=== PATIENT | female | born 1985 | race Caucasian/White ===

== ENCOUNTER 2017-04-20 11:12 | Observation (INO) | payer MEDICAID, OTHER ==
[2017-04-20] MEDS ORDERED: NS 0.9% 1000 ML* 1,000 ML IV ONE (11:40)
--- NOTE | 2017-04-20 11:44 | ED ---
Substance Abuse/Use - HPI Summary HPI Summary: Patient presents to the ED with suspected overdose. occupational therapist rehab manager states her friends had dropped her off at administration in the front lobby who brought her back to triage. She has been unable to keep her eyes open and is unable to respond appropriately. She is unable to tell me which medications/drugs she ingested this morning except for xanax. Triage states she had told her Fentanyl and crack. She denies this on questioning, but again she is unable to respond appropriately and communicate for more than 10 seconds at a time. Unknown medical history or contributing factors. Track gonzalez are noticed on bilateral arms. She is breathing OK and maintains 100% sat on RA. Pupils are dilated. - History Of Current Complaint Chief Complaint: EDOverdose Stated Complaint: AMS Time Seen by Provider: 04/20/17 11:21 Hx Obtained From: Patient, Family/Cad Application Support Specialist, Other: - occupational therapist rehab manager ?: No - unknown as patient is unresponsive Overdose Characteristics: Oral Timing Of Abuse: Daily Severity Initially: Severe Severity Currently: Severe Character: Stuporous Associated Signs And Symptoms: Intentional Ingestion Related Hx: Possible Multi Drug Ingestion - Risk Factor(s) Completed Suicide Risk Factors: White Malagasy - Allergies/Home Medications Allergies/Adverse Reactions: Allergies Allergy/AdvReac Type Severity Reaction Status Date / Time Lorazepam [From Ativan] Allergy Airway Verified 04/20/17 15:25 Obstruction Home Medications: Home Medications Gabapentin CAP(*) [Neurontin 300 CAP(*)] 300 mg PO TID 04/20/17 [History Confirmed 04/20/17] Sertraline* [Zoloft*] 100 mg PO DAILY 04/20/17 [History Confirmed 04/20/17] PMH/Surg Hx/FS Hx/Imm Hx Previously Healthy: Yes Psychiatric History: Reports: Hx Substance Abuse - Immunization History Hx Pertussis Vaccination: No Immunizations Up to Date: Unable to Obtain/Confirm Infectious Disease History: No - Social History Occupation: Unemployed Lives: Alone - unknown Hx Substance Use: Yes - unknown - multi drug ingestion possible Smoking Status (MU): Unknown if Ever Smoked Do You Chew or Dip Tobacco: No Have You Chewed or Dipped Tobacco in the LAST YEAR: No Review of Systems Constitutional: Negative Negative: Fever, Chills, Fatigue Cardiovascular: Negative Respiratory: Negative Positive: no symptoms reported, see HPI Musculoskeletal: Negative Positive: Other - unresponsive All Other Systems Reviewed And Are Negative: Yes Physical Exam Triage Information Reviewed: Yes Vital Signs Reviewed: Yes Appearance: Positive: Ill-Appearing, Thin, Cachectic Skin: Positive: Dry Head/Face: Positive: Normal Head/Face Inspection Diagnostics - Laboratory Result Diagrams: 04/21/17 04:45 04/21/17 04:45 Lab Statement: Any lab studies that have been ordered have been reviewed, and results considered in the medical decision making process. Re-Evaluation - Re-Evaluation First Eval Change: Worse - since arrival she appears to be worse with her responses Second Eval Change: Improved - narcan 2mg given and she is more responsive but still unable to identify what substance she has ingested Course/Dx - Course Course Of Treatment: Narcan 2mg given. Patient did not respond within 30 seconds of giving Narcan. Sternal rub awakened patient and HR increased from 80 to 140's. Dropped to 80 again within 10 minutes. She states she is very cold and given blankets. Other VS stable and she remains at 96-100 O2 sat on RA. Still unsure the medications/drugs she has ingested today and she still remains fairly unresponsive and repeating "I don't know" when asked what she has ingested. Mother and boyfriend called RN. Stated "3 bags heroin, 1 brick of xanax and 6-8 beers since 7am this morning." 3rd OD in 3 different hospitals within the last 4 weeks. AMS. Shw awoke at 4:15 screaming with AMS, delusions and pulled out IV and pulled off EKG leads. She was placed in restraints because she was a danger to herself and others while she was attempting to elope. 4 point restraint applied. Patient continues to be a danger to herself and arm restraints added. She is given Haldol 5mg and benadryl 50mg. Ativan not given d/t allergy. Pulled 2mg Versed, but patient calm enough and not given at this point. She remains on the monitor and in restraints. Advised RN and security to check restraints every 30 minutes. Awaiting urine. - Diagnoses Provider Diagnoses: Overdose Discharge - Discharge Plan Condition: Stable Disposition: ADMITTED TO [facility]
[2017-04-20] MEDS ORDERED: Naloxone* 0.4 MG/ML 1 ML VIAL IV PUSH ONE (11:52)
[2017-04-20 12:46] LABS: Hematocrit 42 % (35-47); Hemoglobin 14.4 g/dl (12.0-16.0); Mean Corpuscular HGB Conc 35 g/dl (31-36); Mean Corpuscular Hemoglobin 33 pg (27-31); Mean Corpuscular Volume 95 fL (80-97); Mean Platelet Volume 7 um3 (7.4-10.4); Red Blood Count 4.38 10^6/ul (4.0-5.4); Red Cell Distribution Width 14 % (10.5-15); White Blood Count 10.9 10^3/ul (3.5-10.8)
[2017-04-20 13:01] LABS: ALT 12 U/L (7-52); AST 20 U/L (13-39); Albumin 3.7 g/dL (3.2-5.2); Alkaline Phosphatase 78 U/L (34-104); Anion Gap 3 mmol/L (2-11); BUN/Creatinine Ratio 36.7 (8-20); Blood Urea Nitrogen 22 mg/dL (6-24); CO2 Carbon Dioxide 27 mmol/L (22-32); Calcium 8.6 mg/dL (8.6-10.3); Chloride 105 mmol/L (101-111); Creatine Kinase 124 U/L (10-223); EGFR Non-African American 116.6 (>60); Globulin 2.5 g/dL (2-4); Glucose 80 mg/dL (70-100); Potassium 3.3 mmol/L (3.5-5.0); Sodium 135 mmol/L (133-145); Total Protein 6.2 g/dL (6.4-8.9)
[2017-04-20 13:45] LABS: Acetaminophen < 15 mcg/mL; Alcohol < 10 mg/dL (<10); Salicylate < 2.50 mg/dL (<30)
[2017-04-20] MEDS ORDERED: Diazepam SYRINGE* 5 MG/ML 10 ML SYRINGE (50 MG total) IM ONE (16:24)
[2017-04-20] MEDS ORDERED: Haloperidol INJ IV/IM* 5 MG/ML AMP IM ONE ×2 (16:25→16:26)
[2017-04-20] MEDS ORDERED: diPHENhydraMINE IV* 50 MG/ML 1 ml VIAL (BENADRYL) IM ONE (16:25)
[2017-04-20] MEDS ORDERED: Midazolam* 1 MG/ML 2 ML VIAL (2 MG) ONE (16:33)
[2017-04-20] MEDS ORDERED: Acetaminophen TAB* 325 MG PO PRN (18:09)
[2017-04-20] MEDS ORDERED: Ondansetron INJ* 2 MG/ML VIAL IV PRN (18:09)
[2017-04-20] MEDS ORDERED: Potassium Chlor TAB* 20 MEQ TAB.ER PO ONE (18:13)
[2017-04-20] MEDS ORDERED: NS 0.9% 1000 ML* 1,000 ML IV SCH (18:15)
--- NOTE | 2017-04-20 19:01 | RAD ---
Indication: Altered mental status. Substance abuse. Comparison: No relevant prior exams available on the [facility] PACS for comparison. Technique: Noncontrast CT vertex of skull through foramen magnum. Report: The sulci, ventricles, and basal cisterns are normal for age. Lopes matter white matter differentiation is preserved without evidence for edema. No intra or extra axial hemorrhage, mass, or fluid collection detected. Unremarkable visualized orbital contents. Unremarkable calvarium and skull base. Unremarkable scalp. The visualized paranasal sinuses and mastoid air spaces are clear. IMPRESSION: No acute CT abnormality of the brain evident. Negative exam.
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
[2017-04-21 05:08] LABS: Benzodiazepine Urine Screen Presumptive Positive (None Detect)
[2017-04-21 05:26] LABS: Hematocrit 44 % (35-47); Hemoglobin 14.7 g/dl (12.0-16.0); Mean Corpuscular HGB Conc 34 g/dl (31-36); Mean Corpuscular Hemoglobin 33 pg (27-31); Mean Corpuscular Volume 98 fL (80-97); Mean Platelet Volume 7 um3 (7.4-10.4); Red Blood Count 4.45 10^6/ul (4.0-5.4); Red Cell Distribution Width 14 % (10.5-15); White Blood Count 7.6 10^3/ul (3.5-10.8)
[2017-04-21 05:47] LABS: BUN/Creatinine Ratio 29.4 (8-20); Calcium 8.8 mg/dL (8.6-10.3); EGFR African American 129.8 (>60); EGFR Non-African American 100.9 (>60); Potassium 3.7 mmol/L (3.5-5.0)
--- NOTE | 2017-04-21 07:27 | RAD ---
INDICATION: Fever. COMPARISON: There are no prior studies available for comparison. TECHNIQUE: A portable view of the chest was obtained. FINDINGS: Cardiac and mediastinal contours appear to be within normal limits. The lungs are clear. No pleural effusion is seen. IMPRESSION: NO EVIDENCE FOR ACUTE DISEASE.
[2017-04-21 12:17] VITALS: BP 114/62
[2017-04-21] MEDS ORDERED: Nicotine GUM* 2 MG PO PRN (13:23)
[2017-04-21] MEDS ORDERED: Nicotine Inhaler* 10 MG AMP INH PRN (13:23)
[2017-04-21] MEDS ORDERED: Nicotine PATCH 21 MG/24 HR* PATCH TRANSDERM SCH (14:00)
[2017-04-21] MEDS ORDERED: Mouth Piece, Nicotine* 1 EACH CARTRIDGE INH ONE (14:00)
--- NOTE | 2017-04-21 15:37 | PN ---
Subjective Date of Service: 04/21/17 Interval History: Patient seen and examined at bedside. Denies fever, chills, shortness of breath , chest discomfort, N/V/D. Pt is very anxious and wanting to leave AMA. Discussed with the Pt the need to make sure that psychiatry was ok with her leaving. Discussed with the patient the risks of leaving against medical advise including but to limited to . Pt denies this was a suicide attempt. Pt offered Suboxone, she states that she doesn't use heroine and doesn't want any. Offered to give Pt a prescription at discharge for Narcan to have on hand at home in case she overdosed again and she declined. Pt states that she plans to go to a rehab in [place]. Tele: Sinus rhythm, rate 70-80's Family History: Unchanged from Admission Social History: Unchanged from Admission Past Medical History: Unchanged from Admission Objective Active Medications: Acetaminophen (Tylenol Tab*) 650 mg PO Q4H PRN Reason: FEVER/PAIN Sodium Chloride (Ns 0.9% 1000 Ml*) 1,000 mls @ 125 mls/hr IV PER RATE [facility] Stop: 04/22/17 02:14 Nicotine (Nicotine Inhaler*) 10 mg INH Q2H PRN Reason: CRAVING Nicotine (Nicotine Patch 21 Mg/24 Hr*) 1 patch TRANSDERM DAILY@0800 [facility] Nicotine Polacrilex (Nicotine Gum*) 2 mg PO Q2H PRN Reason: CRAVING Ondansetron HCl (Zofran Inj*) 4 mg IV Q6H PRN Reason: NAUSEA Pharmacy Profile Note (Nicotine Patch Removal Note*) 1 note FOLLOW UP 2100 [facility] Vital Signs 04/20/17 04/20/17 04/20/17 18:20 18:30 19:00 Temperature 99.8 F Pulse Rate 85 Respiratory 16 17 17 Rate Blood Pressure 111/42 103/56 (mmHg) O2 Sat by Pulse 96 Oximetry 04/20/17 04/20/17 04/20/17 19:28 19:30 20:23 Temperature 99.8 F Pulse Rate 85 Respiratory 18 17 16 Rate Blood Pressure 104/57 111/42 (mmHg) O2 Sat by Pulse 96 Oximetry 04/20/17 04/21/17 04/21/17 23:35 02:47 03:07 Temperature 98.1 F 97.9 F Pulse Rate 95 71 Respiratory 20 20 Rate Blood Pressure 112/48 106/48 (mmHg) O2 Sat by Pulse 97 97 98 Oximetry 04/21/17 04/21/17 04/21/17 07:49 08:00 11:44 Temperature 98.5 F 97.9 F Pulse Rate 76 71 Respiratory 18 12 16 Rate Blood Pressure 119/47 114/62 (mmHg) O2 Sat by Pulse 100 100 Oximetry Oxygen Devices in Use Now: None Appearance: NAD, laying in bed Respiratory: Symmetrical Chest Expansion and Respiratory Effort, Clear to Auscultation Cardiovascular: NL Sounds; No Murmurs; No JVD, RRR Abdominal: NL Sounds; No Tenderness; No Distention Extremities: No Edema Skin: No Rash or Ulcers Neurological: Alert and Oriented x 3, NL Muscle Strength and Tone Lines/Tubes/Other Access: Clean, Dry and Intact Peripheral IV - site benign Nutrition: Taking PO's Result Diagrams: 04/21/17 04:45 04/21/17 04:45 Assess/Plan/Problems-Billing Assessment: Ms. Shelby is a 32 yo female with PMH significant for polysubstance abuse who presented to the emergency room after a polysubstance overdose. - Patient Problems (1) Metabolic acidosis Code(s): E87.2 - ACIDOSIS SNOMED Code(s): 24128014 Comment: - Unclear cause at this time - Will recheck BMP and get a VBG (2) Overdose Code(s): T50.901A - POISONING BY UNSP DRUG/MEDS/BIOL SUBST, ACCIDENTAL, INIT SNOMED Code(s): 41371284 Comment: - Pt states this was not intentional - Psych recommends transfer to a inpatient drug treatment program (3) Polysubstance abuse Code(s): F19.10 - OTHER PSYCHOACTIVE SUBSTANCE ABUSE, UNCOMPLICATED SNOMED Code(s): 731014415 Comment: - Pt encouraged to go to drug rehab (4) DVT prophylaxis Code(s): KJJ4124 - SNOMED Code(s): 890626463 Comment: - SCDs (5) Full code status Code(s): Z78.9 - OTHER SPECIFIED HEALTH STATUS SNOMED Code(s): 764367930 Status and Disposition: OBV. Discharge to home when medically stable.
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
[2017-04-21] MEDS ORDERED: Nicotine Patch Removal NOTE FOLLOW UP SCH (21:00)
--- NOTE | 2017-04-22 04:39 | DS ---
DISCHARGE SUMMARY: DATE OF ADMISSION: 04/20/17 DATE OF DISCHARGE: 04/21/17 - against medical advice. ATTENDING PHYSICIAN: Dr. Adriel Woody * (dictated by Sharon Raza NP). PRIMARY CARE PROVIDER: None. PRIMARY DIAGNOSES: 1. Polysubstance overdose. 2. Polysubstance abuse. 3. Metabolic acidosis, unclear cause. 4. Hypokalemia, resolved. CONSULTATIONS WHILE IN THE HOSPITAL: Dr. Neo Briggs with Psychiatry. STUDIES WHILE IN THE HOSPITAL: Brain CT on 04/20/17. Radiologist's impression : No acute CT abnormality of the brain evident. Negative CT exam. Chest x-ray on 04/20/17. Radiologist's impression: No evidence for acute disease. DISCHARGE MEDICATIONS: None. HISTORY OF PRESENT ILLNESS/HOSPITAL COURSE: Ms. Shelby is a 32-year-old female with past medical history significant for polysubstance abuse with possible bipolar disorder, who presented to the emergency room after her friends dropped her off after she had reportedly taken a brick of Xanax, 3 bags of heroin, and drank 6 to 7 beers and possible attempt at an overdose. This is reportedly the patient's third overdose with illicit substances according to the ER notes within the last 3 to 4 weeks. Apparently, a week ago, the patient was seen at another facility for self- inflicted injuries to her wrist. While in the emergency room, the patient was given 2 mg of Narcan. After receiving the Narcan, the patient became psychotic and tachycardic. She was aggressive towards staff, trying to bite them. She was then given Haldol, Benadryl and Valium. Since then, the patient had been fairly lethargic, but was able to answer simple questions. The patient did not recall who dropped her off at the emergency room. The patient had a brain CT with no significant findings and a chest x-ray showing no significant findings. Due to the patient' s overdose, the hospitalists were asked to evaluate the patient for admission. While in the hospital, the patient denied any suicidal ideations. She was then seen in consultation by Psychiatry who felt that the patient did not need psychiatric care, but needed to go to drug rehab. The patient became more agitated, insisting on leaving AMA during her stay. She was found this morning on her labs to have a significant metabolic acidosis of unclear cause. Discussed with the patient the need to repeat some labs and further her workup and requested that she stay, so that we could help her. The patient adamantly insisted on leaving. It was confirmed with Psychiatry that they felt that she was competent to leave against medical advice. I had a lengthy discussion with the patient regarding her substance abuse. I offered her Suboxone to assist her with to not go through withdrawal while in the hospital. She declined stating that she did not use heroin. I also discussed giving the patient a prescription for Narcan to have on hand at home in the event that she overdosed again and that somebody could administer the Narcan for her at home and she denied having a heroin problem and stated that she did not need any Narcan. We discussed that the patient could have worsening of her condition, permanent disability and even . The patient was able to report this back to me. The patient states that she is interested in going to rehab facility in [place]. The patient left the hospital against medical advice. This is a summarized report of a complex medical history and hospital stay. For further details, please see the entire medical record. TIME SPENT: Time for this discharge was approximately 50 minutes, greater than half of that was spent [id number] with the patient, discussing risks of leaving against medical advice and offering solutions for her to stay. Again, please note that this patient has left against medical advice. SHARON RAZA, PABLO [id number]/[facility] [place] #: [id number] JULIETA
== END 2017-04-21 17:02 | disposition left against medical advice (07) ==
LOC: ED 11:12 → MEDTELE 18:06
PROVIDERS: ADMIT Internal Medicine; ATTEND Internal Medicine
DX: T40.1X1A Poisoning by heroin, accidental (unintentional), initial encounter (principal); T42.4X1A Poisoning by benzodiazepines, accidental (unintentional), initial encounter; T51.0X1A Toxic effect of ethanol, accidental (unintentional), initial encounter; Y92.9 Unspecified place or not applicable; E87.2 Acidosis; E87.6 Hypokalemia; F19.20 Other psychoactive substance dependence, uncomplicated; F17.210 Nicotine dependence, cigarettes, uncomplicated
CPT/HCPCS: 36415; 70450; 71010; 80048; 80053; 80307; 80320; 80329; 82550; 83605; 84484; 84702; 85025; 85610; 87040; 93005; 96372; 96374; 99285; A9270-GY; G0378; G0480; J1200; J1630; J2250; J2310